=== PATIENT | male | born 1945 | race Caucasian/White ===

== ENCOUNTER 2017-01-02 20:34 | Emergency (ER) | payer OTHER, MEDICARE ==
--- NOTE | 2017-01-02 20:53 | ER Document Report ---
ED General - General Time seen by provider: 20:40 Mode of Arrival: Medic Information source: Patient, Relative - spouse TRAVEL OUTSIDE OF THE [place] IN LAST 30 DAYS: No - HPI Onset: Other - see HPI note Pain Level: Denies Associated symptoms: Weakness <MAYANK RONQUILLO - Last Filed: 01/02/17 21:34> <MARYLIN SUBRAMANIAN - Last Filed: 01/02/17 23:33> - General Stated Complaint: SLURRED SPEECH,WEAKNESS Notes: Patient is a 71 year old male presenting to the ED for a TIA. Patient states he has a history of these and when he gets them they usually last from 20 minutes to 3 hours. Patient states that this episode started at 19:30 this evening. Patient has a history of carotid stenosis on the left side; patient states this is why they believe he has reoccurring TIAs. Patient has had increased episodes of these and is having them x1 each week now instead of having 1 every 6 months. Patient just moved here from [place]; all of the patient's tests and doctors are at [facility] and in [place]. Patient states when he gets an episode he has blurry vision, slurred/slow speech, and weakness in his legs to the point of not being able to ambulate. At time of exam patient states he still has some blurry vision and he states his speech is slow and still slurred. Patient has a history of hypertension, hypercholesterolemia, diabetes mellitus ( type 2), and neuropathy. Patient denies any history of a stroke. Patient has been taking aggrenox for the TIAs for the past 4 months; prior to this he was taking plavix. Patient also takes lisinopril, metformin, insulin, zocor, and gavapentin. (MAYANK RONQUILLO) The patient is not a TPA candidate due to his history of recurrent TIAs, with his currently resolving symptoms, and his hyperglycemia. (MARYLIN SUBRAMANIAN) - Related Data Allergies/Adverse Reactions: No Known Allergies Allergy (Unverified 01/02/17 21:44) Past Medical History - General Information source: Patient, Relative - spouse - Social History Smoking Status: Current Every Day Smoker Cigarette use (# per day): Yes - 2 ppd Drug Abuse: None Family History: None Patient has suicidal ideation: No Patient has homicidal ideation: No - Past Medical History Cardiac Medical History: Reports: Hx Hypercholesterolemia, Hx Hypertension Neurological Medical History: Reports: Other - TIA, neuropathy Endocrine Medical History: Reports: Hx Diabetes Mellitus Type 2 Past Surgical History: Reports: Hx Orthopedic Surgery - lumbar spine Sx <SAVIMAYANK SHARIF - Last Filed: 01/02/17 21:34> Review of Systems - Review of Systems Constitutional: No symptoms reported EENT: See HPI, Blurred vision Cardiovascular: No symptoms reported Respiratory: No symptoms reported Gastrointestinal: No symptoms reported Genitourinary: No symptoms reported Male Genitourinary: No symptoms reported Musculoskeletal: No symptoms reported Skin: No symptoms reported Hematologic/Lymphatic: No symptoms reported Neurological/Psychological: See HPI, Weakness -: Yes All other systems reviewed and negative <MAYANK RONQUILLO - Last Filed: 01/02/17 21:34> Physical Exam - Vital signs Interpretation: Hypertensive - 180/88 during exam - General General appearance: Appears well, Alert In distress: Mild - HEENT Head: Normocephalic, Atraumatic Eyes: Normal Pupils: PERRL Mucous membranes: Moist - Respiratory Respiratory status: No respiratory distress Chest status: Nontender Breath sounds: Normal Chest palpation: Normal - Cardiovascular Rhythm: Other - regular with an occasional premature beat Heart sounds: Normal auscultation Murmur: No - Abdominal Inspection: Normal Distension: No distension Bowel sounds: Normal Tenderness: Nontender Organomegaly: No organomegaly - Back Back: Normal, Nontender - Extremities General upper extremity: Normal inspection, Normal ROM, Normal strength General lower extremity: Normal inspection, Edema - bilaterally, Normal ROM, Normal strength - Neurological Neuro grossly intact: Yes Cognition: Normal Orientation: AAOx4 [place] Coma Scale Eye Opening: Spontaneous [place] Coma Scale Verbal: Oriented [place] Coma Scale Motor: Obeys Commands [place] Coma Scale Total: 15 Speech: Normal - patient's spouse states the patient's speech is slowed but it appears normal - Psychological Associated symptoms: Normal affect, Normal mood - Skin Skin Temperature: Warm Skin Moisture: Dry <MAYANK RONQUILLO - Last Filed: 01/02/17 21:34> Course <MAYANK RONQUILLO - Last Filed: 01/02/17 21:34> - Laboratory Result Diagrams: 01/02/17 21:15 01/02/17 21:15 - Diagnostic Test Radiology reviewed: Reports reviewed - Head CT shows mild atrophy with chronic microvascular ischemic white matter changes and some sinus disease. - EKG Interpretation by Me EKG shows normal: Sinus rhythm, Adams, Intervals, QRS Complexes, ST-T Waves Rate: Normal - 87 Rhythm: NSR, PVC's Voltage: Decreased voltage <MARYLIN SUBRAMANIAN - Last Filed: 01/02/17 23:33> - Re-evaluation Re-evalutation: 01/02/17 23:20 At this time the patient is awakened from sleeping and he reports that his speech is completely normal, and his vision is now back to completely normal. His concurs that his speech is completely normal again. The patient was advised about his A1c of 9.5 and blood sugar 304 and the need to establish with a primary care provider to get better control of his blood sugars. Due to the chronic recurring nature of his TIAs, he is on Aggrenox, he has been extensively worked up in the past, there is no benefit to hospitalization admission at this time. His and he are both in agreement and actually relieved about that decision. (MARYLIN SUBRAMANIAN) - Vital Signs Vital signs: Temp Pulse Resp BP Pulse Ox 92 20 190/84 H 95 01/02/17 21:00 01/02/17 21:00 01/02/17 21:00 01/02/17 21:00 - Laboratory Laboratory results interpreted by md: 01/02/17 01/02/17 01/02/17 21:15 21:15 21:15 WBC 10.7 H RBC 4.08 L Sodium 145.4 H Glucose 304 H Hemoglobin A1c % 9.5 H Discharge <MAYANK RONQUILLO - Last Filed: 01/02/17 21:34> <MARYLIN SUBRAMANIAN - Last Filed: 01/02/17 23:33> - Discharge Clinical Impression: Poorly controlled diabetes mellitus Transient ischemic attack Qualifiers: Transient cerebral ischemia type: unspecified Qualified Code(s): G45.9 - Transient cerebral ischemic attack, unspecified Condition: Stable Disposition: HOME, SELF-CARE Additional Instructions: Transient Ischemic Attack: You have been diagnosed as having a transient ischemic attack (TIA). This is caused when an artery to the brain has been temporarily blocked. It can result in visual changes, difficulty with speech, and weakness or numbness -- usually limited to one side of the body. TIA symptoms usually resolve within an hour, but a TIA is serious, as it may be a warning sign of an impending stroke. To prevent further episodes, you may be placed on medication to reduce the possibility that your platelets will aggregate and form blood clots in the arteries that supply the brain. Usually, this includes aspirin and sometimes other platelet inhibitors. Further evaluation is often necessary to make an exact diagnosis as to where these blood clots are originating, and if anything else needs to be done to correct the problem. Call the physician or go to the emergency room if episodes occur with increasing frequency. If symptoms occur that don't go away within a few minutes , call 911. //////////////////////////////////////////////////////////////////////////////// ///////////////////////////////////////////////////////////////////////////// Continue your regular medications. Check your blood sugars regularly. Follow-up with a local medical doctor to help manage your sugars more adequately. Smoking does increase the risk of stroke, so consider decreasing or stopping smoking. RETURN TO THE EMERGENCY ROOM IF ANY NEW OR WORSENING SYMPTOMS. Scribe Attestation: 01/02/17 23:31 I personally performed the services described in the documentation, reviewed and edited the documentation which was dictated to the scribe in my presence, and it accurately records my words and actions. (MARYLIN SUBRAMANIAN) Scribe Documentation - Scribe Written by Rich:: Mayank Ronquillo 01/02/17 21:10 acting as scribe for :: Sasha <MAYANK RONQUILLO - Last Filed: 01/02/17 21:34>
[2017-01-02 21:43] LABS: ABSOLUTE BASOPHILS # (AUTO) 0.1 10^3/uL (0.0-0.2); ABSOLUTE EOSINOPHILS # (AUTO) 0.2 10^3/uL (0.0-0.6); ABSOLUTE LYMPHOCYTES (AUTO) 1.9 10^3/uL (0.5-4.7); ABSOLUTE MONOCYTES (AUTO) 0.8 10^3/uL (0.1-1.4); ABSOLUTE NEUT (AUTO) 7.8 10^3/uL (1.7-8.2); BASOPHILS % (AUTO) 0.7 % (0-2); HEMATOCRIT 39.3 % (37.9-51.0); HEMOGLOBIN 13.6 g/dL (13.5-17.0); HGB HCT DIFFERENCE 1.5; LYMPHOCYTES % (AUTO) 17.5 % (13-45); MEAN CORPUSCULAR HEMOGLOBIN 33.4 pg (27.0-33.4); MEAN CORPUSCULAR HGB CONC 34.7 g/dL (32.0-36.0); MEAN CORPUSCULAR VOLUME 96 fl (80-97); MONOCYTES % (AUTO) 7.4 % (3-13); RED BLOOD COUNT 4.08 10^6/uL (4.35-5.55); RED CELL DISTRIBUTION WIDTH 13.5 % (11.5-14.0); SEGMENTED NEUTROPHILS % (AUTO) 72.4 % (42-78); WHITE BLOOD COUNT 10.7 10^3/uL (4.0-10.5)
[2017-01-02 22:02] LABS: ALANINE AMINOTRANSFERASE 35 U/L (21-72); ALBUMIN 4.5 g/dL (3.5-5.0); ALKALINE PHOSPHATASE 69 U/L (38-126); ANION GAP 14 (5-19); ASPARTATE AMINO TRANSFERASE 23 U/L (17-59); BILIRUBIN,DIRECT 0.3 mg/dL (0.0-0.4); BILIRUBIN,TOTAL 0.4 mg/dL (0.2-1.3); BLOOD UREA NITROGEN 18 mg/dL (7-20); CARBON DIOXIDE 27 mmol/L (22-30); CHLORIDE 104 mmol/L (98-107); CREATININE RESULT 0.66 mg/dL (0.52-1.25); GLUCOSE 304 mg/dL (75-110); POTASSIUM 4.3 mmol/L (3.6-5.0); SODIUM 145.4 mmol/L (137-145); TOTAL PROTEIN 7.3 g/dL (6.3-8.2)
[2017-01-02 22:41] LABS: ADD ON TESTING BLD IN LAB ACKNOWLEDGE
[2017-01-02 23:18] LABS: CREATINE KINASE 140 U/L (55-170); MAGNESIUM 2.2 mg/dL (1.6-2.3)
[2017-01-02 23:36] LABS: CREATINE KINASE MB 2.36 ng/mL (<4.55); TROPONIN I < 0.012 ng/mL
[2017-01-02 23:45] VITALS: BP 149/82
--- NOTE | 2017-01-03 09:34 | EKG REPORT ---
SEVERITY:- ABNORMAL ECG - SINUS RHYTHM MULTIPLE VENTRICULAR PREMATURE COMPLEXES LOW VOLTAGE IN FRONTAL LEADS : Confirmed by: Aura Perez 03-Jan-2017 09:33:08
== END 2017-01-02 23:45 | disposition home or self-care (01) ==
LOC: ER 20:34
DX: E11.9 Type 2 diabetes mellitus without complications (principal); R53.1 Weakness; G45.9 Transient cerebral ischemic attack, unspecified; F17.210 Nicotine dependence, cigarettes, uncomplicated; E78.00 Pure hypercholesterolemia, unspecified; I10 Essential (primary) hypertension; Z86.73 Personal history of transient ischemic attack (TIA), and cerebral infarction without residual deficits
CPT/HCPCS: 36415; 70450; 80053; 82550; 82553; 83036; 83735; 84484; 85025; 93005; 93010; 99285

== ENCOUNTER 2017-12-04 12:10 | Emergency (ER) | payer OTHER, MEDICARE ==
[2017-12-04 12:17] VITALS: BP 149/62
--- NOTE | 2017-12-04 13:12 | ER Document Report ---
HPI - HPI Patient complains to provider of: Lower extremity swelling Onset: Other - 1 month Onset/Duration: Persistent Quality of pain: Achy Pain Level: 1 Context: Patient presents complaining of swelling off and on to right lower leg for the past month. Patient states that he got an abrasion to his right leg 3 weeks ago. Patient states that he saw his doctor who advised him to come here to be evaluated for possible blood clot. Patient denies any chest pain or shortness of breath. Associated Symptoms: denies: Chest pain, Nonproductive cough, Fever, Shortness of breath Exacerbated by: Denies Relieved by: Denies Similar symptoms previously: No Recently seen / treated by doctor: No - ROS ROS below otherwise negative: Yes Systems Reviewed and Negative: Yes All other systems reviewed and negative - CONSTITUTIONAL Constitutional: DENIES: Fever, Chills - NEURO Neurology: DENIES: Weakness - CARDIOVASCULAR Cardiovascular: DENIES: Chest pain - RESPIRATORY Respiratory: DENIES: Trouble Breathing, Coughing - MUSCULOSKELETAL Musculoskeletal: REPORTS: Extremity pain - RLE, Swelling - DERM Skin Color: Erythema Skin Problems: Abrasion Past Medical History - General Information source: Patient - Social History Smoking Status: Unknown if Ever Smoked Frequency of alcohol use: None Drug Abuse: None Occupation: retired Family History: None Patient has suicidal ideation: No Patient has homicidal ideation: No - Past Medical History Cardiac Medical History: Reports: Hx Hypercholesterolemia, Hx Hypertension Endocrine Medical History: Reports: Hx Diabetes Mellitus Type 2 Renal/ Medical History: Denies: Hx Peritoneal Dialysis Past Surgical History: Reports: Hx Orthopedic Surgery - lumbar spine Sx Vertical Provider Document - CONSTITUTIONAL Agree With Documented VS: Yes Exam Limitations: No Limitations General Appearance: WD/WN, No Apparent Distress - INFECTION CONTROL TRAVEL OUTSIDE OF THE [place] IN LAST 30 DAYS: No - HEENT HEENT: Atraumatic, Normocephalic - NECK Neck: Normal Inspection, Supple - RESPIRATORY Respiratory: Breath Sounds Normal, No Respiratory Distress O2 Sat by Pulse Oximetry: 97 - CARDIOVASCULAR Cardiovascular: Regular Rate, Regular Rhythm Pulses: Decreased: Dorsalis pedis - with doppler - GI/ABDOMEN Gastrointestinal: Abdomen Soft - BACK Back: Normal Inspection - MUSCULOSKELETAL/EXTREMETIES Musculoskeletal/Extremeties: MAEW, Tender - RLE tenderness from the knee distally, Edema - 2+. negative: Eccymosis - NEURO Level of Consciousness: Awake, Alert, Appropriate Motor/Sensory: No Motor Deficit - DERM Integumentary: Warm, Dry Notes: Erythema to right lower extremity, skin is warm to touch. Patient with abrasion over proximal third of right lower leg. Course - Re-evaluation Re-evalutation: 12/04/17 14:55 Diagnostic test results reviewed. No concern for DVT at this time. Patient with appreciable pulse Via Doppler. Patient does have erythema with a pretty large abrasion to the right lower leg. Will cover for cellulitis and have patient follow-up with primary doctor for recheck. - Vital Signs Vital signs: Temp Pulse Resp BP Pulse Ox 98.5 F 67 16 149/62 H 97 12/04/17 12:16 12/04/17 12:16 12/04/17 12:16 12/04/17 12:16 12/04/17 12:16 - Laboratory Result Diagrams: 12/04/17 14:09 12/04/17 14:09 Laboratory results interpreted by me: 12/04/17 14:55 Labs- Entire Visit 12/04/17 12/04/17 12/04/17 14:09 14:09 14:09 WBC 8.9 RBC 4.08 L Hgb 13.6 Hct 39.4 MCV 97 MCH 33.3 MCHC 34.5 RDW 13.6 Plt Count 210 Seg Neutrophils % 61.2 Lymphocytes % 27.6 Monocytes % 8.7 Eosinophils % 1.6 Basophils % 0.9 Absolute Neutrophils 5.5 Absolute Lymphocytes 2.5 Absolute Monocytes 0.8 Absolute Eosinophils 0.1 Absolute Basophils 0.1 PT 12.5 INR 0.87 APTT 26.7 Sodium 143.2 Potassium 4.1 Chloride 108 H Carbon Dioxide 21 L Anion Gap 14 BUN 18 Creatinine 0.73 Est GFR ( Amer) > 60 Est GFR (Non-Af Amer) > 60 Glucose 108 Calcium 9.6 Total Bilirubin 0.3 Direct Bilirubin 0.3 Neonat Total Bilirubin Not Reportable Neonat Direct Bilirubin Not Reportable Neonat Indirect Bili Not Reportable AST 17 ALT 29 Alkaline Phosphatase 56 Total Protein 7.9 Albumin 4.8 - Diagnostic Test Radiology reviewed: Reports reviewed Discharge - Discharge Clinical Impression: Leg swelling, Hx of essential hypertension Cellulitis Qualifiers: Site of cellulitis: extremity Site of cellulitis of extremity: lower extremity Laterality: right Qualified Code(s): L03.115 - Cellulitis of right lower limb Condition: Stable Disposition: HOME, SELF-CARE Instructions: Abrasions ([facility]), Cellulitis ([facility]), Cephalexin ([facility]) Additional Instructions: Return immediately for any new or worsening symptoms Followup with your primary care provider, call tomorrow to make a followup appointment Prescriptions: Cephalexin Monohydrate [Keflex 500 mg Capsule] 500 mg PO Q6H 7 Days capsule Forms: Elevated Blood Pressure Referrals: [facility] [Provider Group] - Follow up tomorrow
[2017-12-04 14:21] LABS: ABSOLUTE BASOPHILS # (AUTO) 0.1 10^3/uL (0.0-0.2); ABSOLUTE EOSINOPHILS # (AUTO) 0.1 10^3/uL (0.0-0.6); ABSOLUTE LYMPHOCYTES (AUTO) 2.5 10^3/uL (0.5-4.7); ABSOLUTE MONOCYTES (AUTO) 0.8 10^3/uL (0.1-1.4); ABSOLUTE NEUT (AUTO) 5.5 10^3/uL (1.7-8.2); BASOPHILS % (AUTO) 0.9 % (0-2); EOSINOPHILS % (AUTO) 1.6 % (0-6); HEMATOCRIT 39.4 % (37.9-51.0); HEMOGLOBIN 13.6 g/dL (13.5-17.0); LYMPHOCYTES % (AUTO) 27.6 % (13-45); MEAN CORPUSCULAR HEMOGLOBIN 33.3 pg (27.0-33.4); MEAN CORPUSCULAR HGB CONC 34.5 g/dL (32.0-36.0); MEAN CORPUSCULAR VOLUME 97 fl (80-97); MONOCYTES % (AUTO) 8.7 % (3-13); PLATELET COUNT 210 10^3/uL (150-450); RED BLOOD COUNT 4.08 10^6/uL (4.35-5.55); RED CELL DISTRIBUTION WIDTH 13.6 % (11.5-14.0); SEGMENTED NEUTROPHILS % (AUTO) 61.2 % (42-78); TOTAL CELLS COUNTED % (AUTO) 100 %; WHITE BLOOD COUNT 8.9 10^3/uL (4.0-10.5)
--- NOTE | 2017-12-04 14:26 | RADIOLOGY REPORT (SQ) ---
EXAM DESCRIPTION: VENOUS UNILATERAL LOWER COMPLETED DATE/TIME: 12/04/2017 2:11 pm REASON FOR STUDY: RLL pain, swelling COMPARISON: None. TECHNIQUE: Dynamic and static reynolds scale and color images acquired of the right leg venous system. S elected spectral images acquired with additional compression and augmentation maneuvers. The contrala teral common femoral vein and saphenofemoral junction were also imaged. Images stored on PACS. LIMITATIONS: None. FINDINGS: RIGHT COMMON FEMORAL: Normal phasicity, compression and augmentation. No visualized echogenic material on g ray scale. No defects on color images. FEMORAL: Normal compression and augmentation. No visualized echogenic material on reynolds scale. No defe cts on color images. POPLITEAL: Normal compression, augmentation. No visualized echogenic material on reynolds scale. No defec ts on color images. CALF VESSELS: Normal compression, augmentation. No visualized echogenic material on reynolds scale. No de fects on color images. GSV and SSV: Normal compression, augmentation. No visualized echogenic material on reynolds scale. No def ects on color images. ANY DEEP VENOUS INSUFFICIENCY: Not evaluated. ANY EVIDENCE OF POPLITEAL CYST: No. OTHER: No other significant finding. LEFT COMMON FEMORAL VEIN AND SAPHENOFEMORAL JUNCTION: Normal phasicity, compression and augmentation. No visualized echogenic material on reynolds scale. No de fects on color images. IMPRESSION: NO EVIDENCE OF DVT OR SVT IN THE LEFT LEG. TECHNICAL DOCUMENTATION: JOB ID: [id number] [employer]- All Rights Reserved Reading location - IP/workstation name: [email or web address]
[2017-12-04 14:29] LABS: INTERNATIONAL RATION (INR) 0.87; PROTHROMBIN TIME 12.5 SEC (11.4-15.4)
[2017-12-04 14:30] LABS: PARTIAL THROMBOPLASTIN TIME 26.7 SEC (23.5-35.8)
[2017-12-04 14:39] LABS: ALANINE AMINOTRANSFERASE 29 U/L (21-72); ALBUMIN 4.8 g/dL (3.5-5.0); ALKALINE PHOSPHATASE 56 U/L (38-126); ANION GAP 14 (5-19); ASPARTATE AMINO TRANSFERASE 17 U/L (17-59); BILIRUBIN,DIRECT 0.3 mg/dL (0.0-0.4); BILIRUBIN,TOTAL 0.3 mg/dL (0.2-1.3); BLOOD UREA NITROGEN 18 mg/dL (7-20); CALCIUM 9.6 mg/dL (8.4-10.2); CARBON DIOXIDE 21 mmol/L (22-30); CHLORIDE 108 mmol/L (98-107); GLUCOSE 108 mg/dL (75-110); POTASSIUM 4.1 mmol/L (3.6-5.0); SODIUM 143.2 mmol/L (137-145); TOTAL PROTEIN 7.9 g/dL (6.3-8.2)
[2017-12-04] MEDS ORDERED: CEPHALEXIN 500 MG CAPSULE PO ONE (14:55)
== END 2017-12-04 15:17 | disposition home or self-care (01) ==
LOC: ER 12:10
DX: S80.811A Abrasion, right lower leg, initial encounter (principal); L03.115 Cellulitis of right lower limb; X58.XXXA Exposure to other specified factors, initial encounter; E11.9 Type 2 diabetes mellitus without complications; I10 Essential (primary) hypertension
CPT/HCPCS: 36415; 80053; 85025; 85610; 85730; 93971; 99284

== ENCOUNTER 2018-04-29 08:57 | Emergency (ER) | payer OTHER, MEDICARE ==
--- NOTE | 2018-04-29 09:20 | ER Document Report ---
ED General - General Chief Complaint: Nausea/Vomiting Stated Complaint: NAUSEA,VOMITING Time Seen by Provider: 04/29/18 09:00 Notes: 72-year-old male to emergency department chief complaint of fever and not feeling well. Nausea and vomiting. Mild shortness of breath. Patient states that he has a history of COPD. Occasional pneumonia. Started having some vomiting this morning. Does not have any chest pain at this time. Fever of 101 at home. TRAVEL OUTSIDE OF THE [place] IN LAST 30 DAYS: No - HPI Onset: Just prior to arrival Quality of pain: No pain Severity: Moderate - Related Data Allergies/Adverse Reactions: No Known Allergies Allergy (Verified 12/04/17 12:12) Past Medical History - General Information source: Patient - Social History Smoking Status: Current Every Day Smoker Cigarette use (# per day): Yes Frequency of alcohol use: None Drug Abuse: None Lives with: Spouse/Significant other Family History: None Patient has suicidal ideation: No Patient has homicidal ideation: No - Past Medical History Cardiac Medical History: Reports: Hx Hypercholesterolemia, Hx Hypertension Endocrine Medical History: Reports: Hx Diabetes Mellitus Type 2 Renal/ Medical History: Denies: Hx Peritoneal Dialysis Past Surgical History: Reports: Hx Orthopedic Surgery - lumbar spine Sx Review of Systems - Review of Systems Constitutional: Fever. denies: Malaise, Weakness EENT: denies: Eye pain, Nose pain, Mouth pain Cardiovascular: denies: Chest pain, Orthopnea, Dyspnea, Edema Respiratory: denies: Cough, Hurts to breathe, Short of breath, Wheezing Gastrointestinal: Nausea, Vomiting. denies: Abdominal pain, Diarrhea Genitourinary: denies: Burning, Dysuria, Discharge Musculoskeletal: denies: Back pain, Joint pain, Muscle pain Skin: denies: Change in color, Dryness, Lesions, Lumps, Rash Hematologic/Lymphatic: denies: Anemia, Blood clots, Easy bleeding, Easy bruising Neurological/Psychological: denies: Confusion, Dementia, Weakness, Speech impairment, Numbness Physical Exam - Vital signs Vitals: Temp Pulse Resp BP Pulse Ox 99.6 F 79 16 149/53 H 96 04/29/18 09:08 04/29/18 09:08 04/29/18 09:08 04/29/18 09:08 04/29/18 09:08 Interpretation: Normal - General General appearance: Appears well, Alert - HEENT Head: Normocephalic, Atraumatic Eyes: Normal Pupils: PERRL - Respiratory Respiratory status: No respiratory distress Chest status: Nontender Breath sounds: Rales, Other Chest palpation: Normal - Cardiovascular Rhythm: Regular Heart sounds: Normal auscultation Murmur: No - Abdominal Inspection: Normal Distension: No distension Bowel sounds: Normal Tenderness: Nontender Organomegaly: No organomegaly - Back Back: Normal, Nontender - Extremities General upper extremity: Normal inspection, Nontender, Normal color, Normal ROM , Normal temperature General lower extremity: Normal inspection, Nontender, Normal color, Normal ROM , Normal temperature, Normal weight bearing. No: Faustino's sign - Neurological Neuro grossly intact: Yes Cognition: Normal Orientation: AAOx4 [place] Coma Scale Eye Opening: Spontaneous [place] Coma Scale Verbal: Oriented [place] Coma Scale Motor: Obeys Commands [place] Coma Scale Total: 15 Speech: Normal Motor strength normal: LUE, RUE, LLE, RLE Sensory: Normal - Psychological Associated symptoms: Normal affect, Normal mood - Skin Skin Temperature: Warm Skin Moisture: Dry Skin Color: Normal Course - Re-evaluation Re-evalutation: 04/29/18 13:03 CT scan performed of the chest abdomen and pelvis to look for source of fever. Possible groundglass opacity in the right lower lobe consistent with pneumonia. This would go along with patient's symptoms. At this time we will treat with some antibiotics. Labs are fairly unremarkable. Does not appear toxic. Not septic. Does have an elevated WBC count. Port score of 73. Could have inpatient or outpatient treatment at this time. Patient prefers outpatient treatment. Will give initial antibiotics at this time. Patient has close follow-up. 04/29/18 13:03 04/29/18 13:07 - Vital Signs Vital signs: Temp Pulse Resp BP Pulse Ox 99.6 F 79 16 149/53 H 96 04/29/18 09:08 04/29/18 09:08 04/29/18 09:08 04/29/18 09:08 04/29/18 09:08 - Laboratory Result Diagrams: 04/29/18 09:05 04/29/18 09:05 Laboratory results interpreted by me: 04/29/18 04/29/18 04/29/18 09:05 09:05 09:13 WBC 16.4 H Seg Neuts % (Manual) 94 H Lymphocytes % (Manual) 2 L Abs Neuts (Manual) 15.4 H Abs Lymphs (Manual) 0.3 L Glucose 333 H POC Glucose 341 H AST 16 L Urine Glucose (UA) Urine Ketones 04/29/18 11:30 WBC Seg Neuts % (Manual) Lymphocytes % (Manual) Abs Neuts (Manual) Abs Lymphs (Manual) Glucose POC Glucose AST Urine Glucose (UA) >=500 H Urine Ketones TRACE H Discharge - Discharge Clinical Impression: Right lower lobe pneumonia Qualifiers: Pneumonia type: due to unspecified organism Qualified Code(s): J18.1 - Lobar pneumonia, unspecified organism Condition: Good Disposition: HOME, SELF-CARE Instructions: Pneumonia ([facility]) Prescriptions: Azithromycin 250 mg PO DAILY 7 Days #7 tablet Cefdinir [Omnicef 300 mg Capsule] 1 cap PO BID 10 Days #30 capsule Referrals: MYNOR REDMOND PA [Primary Care Provider] - Follow up as needed
[2018-04-29 09:40] LABS: VENOUS BLOOD BASE EXCESS -0.8 mmol/L; VENOUS BLOOD PCO2 45.5 mmHg (35-63); VENOUS BLOOD PH 7.36 (7.30-7.42)
[2018-04-29 09:44] LABS: INTERNATIONAL RATION (INR) 0.92; PROTHROMBIN TIME 12.8 SEC (11.4-15.4)
[2018-04-29 09:45] LABS: PARTIAL THROMBOPLASTIN TIME 23.5 SEC (23.5-35.8)
[2018-04-29 09:56] LABS: ALANINE AMINOTRANSFERASE 21 U/L (21-72); ALBUMIN 4.5 g/dL (3.5-5.0); ALKALINE PHOSPHATASE 83 U/L (38-126); ANION GAP 17 (5-19); ASPARTATE AMINO TRANSFERASE 16 U/L (17-59); BILIRUBIN,DIRECT 0.3 mg/dL (0.0-0.4); BILIRUBIN,TOTAL 0.7 mg/dL (0.2-1.3); BLOOD UREA NITROGEN 17 mg/dL (7-20); CALCIUM 9.6 mg/dL (8.4-10.2); CARBON DIOXIDE 22 mmol/L (22-30); CHLORIDE 105 mmol/L (98-107); GLUCOSE 333 mg/dL (75-110); POTASSIUM 4.2 mmol/L (3.6-5.0); SODIUM 143.5 mmol/L (137-145); TOTAL PROTEIN 7.6 g/dL (6.3-8.2)
[2018-04-29 10:04] LABS: HEMATOCRIT 41.8 % (37.9-51.0); HEMOGLOBIN 14.3 g/dL (13.5-17.0); MEAN CORPUSCULAR HEMOGLOBIN 32.5 pg (27.0-33.4); MEAN CORPUSCULAR HGB CONC 34.1 g/dL (32.0-36.0); MEAN CORPUSCULAR VOLUME 95 fl (80-97); PLATELET COUNT 187 10^3/uL (150-450); RED BLOOD COUNT 4.39 10^6/uL (4.35-5.55); RED CELL DISTRIBUTION WIDTH 13.8 % (11.5-14.0); WHITE BLOOD COUNT 16.4 10^3/uL (4.0-10.5)
--- NOTE | 2018-04-29 10:05 | RADIOLOGY REPORT (SQ) ---
EXAM DESCRIPTION: CHEST SINGLE VIEW COMPLETED DATE/TIME: 04/29/2018 9:54 am REASON FOR STUDY: sob COMPARISON: None. EXAM PARAMETERS: NUMBER OF VIEWS: One view. TECHNIQUE: Single frontal radiographic view of the chest acquired. RADIATION DOSE: NA LIMITATIONS: None. FINDINGS: LUNGS AND PLEURA: There is elevation of the right hemidiaphragm, otherwise no opacities, m asses or pneumothorax. No pleural effusion. MEDIASTINUM AND HILAR STRUCTURES: No masses. Contour normal. HEART AND VASCULAR STRUCTURES: Heart normal in size. Normal vasculature. BONES: No acute findings. HARDWARE: None in the chest. OTHER: No other significant finding. IMPRESSION: Elevation of the right hemidiaphragm. No comparison studies available to determine chrome plater nicity. Exam is otherwise unremarkable. TECHNICAL DOCUMENTATION: JOB ID: [id number] [employer]- All Rights Reserved Reading location - IP/workstation name: [email or web address]
[2018-04-29 10:18] LABS: ABSOLUTE LYMPHOCYTES# (MANUAL) 0.3 10^3/uL (0.5-4.7); ABSOLUTE MONOCYTES # (MANUAL) 0.5 10^3/uL (0.1-1.4); ABSOLUTE NEUTROPHILS# (MANUAL) 15.4 10^3/uL (1.7-8.2); BASOPHILS % (MANUAL) 1 % (0-2); EOSINOPHILS % (MANUAL) 0 % (0-6); LYMPHOCYTES % (MANUAL) 2 % (13-45); MONOCYTES % (MANUAL) 3 % (3-13); PLATELET COMMENT ADEQUATE; RBC MORPHOLOGY COMMENT NORMO-CYTIC/CHROMIC; SEGMENTED NEUTROPHILS % (MAN) 94 % (42-78); TOTAL CELLS COUNTED 100
[2018-04-29] MEDS ORDERED: ACETAMINOPHEN 325 MG TABLET PO ONE (10:29)
[2018-04-29] MEDS ORDERED: NORMAL SALINE 1000 ML 1,000 ML IV ONE (10:29)
[2018-04-29 11:49] LABS: APPEARANCE,URINE CLEAR; BILIRUBIN,URINE NEGATIVE (NEGATIVE); COLOR,URINE YELLOW; GLUCOSE, URINE >=500 mg/dL (NEGATIVE); KETONES,URINE TRACE mg/dL (NEGATIVE); LEUKOCYTE ESTERASE,URINE NEGATIVE (NEGATIVE); NITRITE,URINE NEGATIVE (NEGATIVE); PROTEIN,URINE NEGATIVE (NEGATIVE); URINE SPECIFIC GRAVITY 1.032; UROBILINOGEN,URINE NEGATIVE mg/dL (<2.0)
--- NOTE | 2018-04-29 12:08 | RADIOLOGY REPORT (SQ) ---
EXAM DESCRIPTION: CT CHEST WITH; CT ABD/PELVIS WITH IV ONLY COMPLETED DATE/TIME: 04/29/2018 11:28 am REASON FOR STUDY: fever, cough, sob; abd pain, fever CONTRAST TYPE AND DOSE: contrast/concentration: Isovue 370.00 mg/ml; Total Contrast Delivered: 91.0 ml; Total Saline Delivered: 62.0 ml RENAL FUNCTION: Creatinine: 0.72. COMPARISON: None. TECHNIQUE: CT scan of the chest performed using helical scanning technique with dynamic intravenous contrast injection. Images reviewed with lung, soft tissue and bone windows. Reconstructed coronal a nd sagittal MPR images reviewed. All images stored on PACS. All CT scanners at this facility use dose modulation, iterative reconstruction, and/or weight based d osing when appropriate to reduce radiation dose to as low as reasonably achievable (ALARA). [facility]: Dose Right [facility]: CareDose [facility]: Dose Right [facility]: Teradose 4D [facility]: [employer] RADIATION DOSE: CT Rad equipment meets quality standard of care and radiation dose reduction techniq ues were employed. CTDIvol: 11.8 - 16.9 mGy. DLP: 1785 mGy-cm.. LIMITATIONS: None. FINDINGS: AXILLAE: No adenopathy. CHEST WALL: No masses. No subcutaneous air. LUNGS: Ground-glass infiltrate within the right lower lobe. Pneumonia must be considered. PLEURA: No effusions. No calcifications. THYROID: No masses or significant asymmetry. HILAR AND MEDIASTINAL STRUCTURES: Small nonenlarged precarinal and right hilar nodes. AORTA AND GREAT VESSELS: Atherosclerotic calcification of thoracic aorta. PULMONARY ARTERIES: No identified pulmonary emboli. Study not optimized for the pulmonary arteries. HEART: No abnormality. BONES: Dorsal spondylosis. IMPRESSION: GROUND-GLASS INFILTRATES RIGHT LOWER LOBE CONSISTENT WITH PNEUMONIA. OTHERWISE, NORMAL CT OF CHEST WITH CONTRAST. COMPARISON: None. RADIATION DOSE: CT Rad equipment meets quality standard of care and radiation dose reduction techniq ues were employed. CTDIvol: 11.8 - 16.9 mGy. DLP: 1785 mGy-cm.mGy. TECHNIQUE: CT scan of the abdomen and pelvis performed with intravenous and oral contrast using georgina yissel scanning technique with dynamic intravenous contrast injection. Images reviewed with lung, soft tissue and bone windows. Reconstructed coronal and sagittal MPR images reviewed. Delayed images for evaluation of the urinary system also acquired and evaluated. All images stored on PACS. All CT scanners at this facility use dose modulation, iterative reconstruction, and/or weight based d osing when appropriate to reduce radiation dose to as low as reasonably achievable (ALARA). [facility]: Dose Right [facility]: [employer]Care [facility]: Dose Right [facility]: Teradose 4D [facility]: [employer] FINDINGS: LIVER: No abnormality. SPLEEN: No abnormality. PANCREAS: No abnormality. GALLBLADDER: No abnormality. ADRENAL GLANDS: No abnormality. RIGHT KIDNEY AND URETER: No solid masses. No significant calcification. No hydronephrosis or hydroure ter. LEFT KIDNEY AND URETER: Small cortical cyst lower pole left kidney. AORTA AND VESSELS: Diffuse atherosclerotic change of the abdominal aorta. Atherosclerotic change or igin of celiac and superior mesenteric arteries. Atherosclerotic change of the common iliac artery i s and femoral arteries. RETROPERITONEUM: No retroperitoneal adenopathy, hemorrhage or masses. LARGE AND SMALL BOWEL: Hiatal hernia. Constipation. APPENDIX: Normal. ABDOMINAL WALL: No hernia or masses. PERITONEAL CAVITY: No free air. No free fluid. No peritoneal implants or masses. PELVIS: Urinary bladder: Distended urinary bladder. Prostate and seminal vesicles: Prostatic calcu li. Prostate is mildly prominent. BONES: Lumbar spondylosis. Prominent dorsal spondylosis. OTHER: Umbilical hernia containing fat. Findings suggestive of edema of the subcutaneous fat of the left lower abdominal wall. Possibility of previous IM injection of posttraumatic change must be cons idered. IMPRESSION: MILD PROSTATOMEGALY. DISTENDED URINARY BLADDER. FINDINGS SUGGESTIVE OF POSTTRAUMATIC C HANGE TO THE LEFT LOWER ABDOMINAL WALL. UMBILICAL HERNIA TECHNICAL DOCUMENTATION: JOB ID: [id number] [place]-69 Quality ID # [id number]: Final reports with documentation of one or more dose reduction techniques (e.g., Au tomated exposure control, adjustment of the mA and/or kV according to patient size, use of iterative reconstruction technique) 2010 [employer]- All Rights Reserved Reading location - IP/workstation name: [email or web address]
--- NOTE | 2018-04-29 12:08 | RADIOLOGY REPORT (SQ) ---
EXAM DESCRIPTION: CT CHEST WITH; CT ABD/PELVIS WITH IV ONLY COMPLETED DATE/TIME: 04/29/2018 11:28 am REASON FOR STUDY: fever, cough, sob; abd pain, fever CONTRAST TYPE AND DOSE: contrast/concentration: Isovue 370.00 mg/ml; Total Contrast Delivered: 91.0 ml; Total Saline Delivered: 62.0 ml RENAL FUNCTION: Creatinine: 0.72. COMPARISON: None. TECHNIQUE: CT scan of the chest performed using helical scanning technique with dynamic intravenous contrast injection. Images reviewed with lung, soft tissue and bone windows. Reconstructed coronal a nd sagittal MPR images reviewed. All images stored on PACS. All CT scanners at this facility use dose modulation, iterative reconstruction, and/or weight based d osing when appropriate to reduce radiation dose to as low as reasonably achievable (ALARA). [facility]: Dose Right [facility]: CareDose [facility]: Dose Right [facility]: Teradose 4D [facility]: [employer] RADIATION DOSE: CT Rad equipment meets quality standard of care and radiation dose reduction techniq ues were employed. CTDIvol: 11.8 - 16.9 mGy. DLP: 1785 mGy-cm.. LIMITATIONS: None. FINDINGS: AXILLAE: No adenopathy. CHEST WALL: No masses. No subcutaneous air. LUNGS: Ground-glass infiltrate within the right lower lobe. Pneumonia must be considered. PLEURA: No effusions. No calcifications. THYROID: No masses or significant asymmetry. HILAR AND MEDIASTINAL STRUCTURES: Small nonenlarged precarinal and right hilar nodes. AORTA AND GREAT VESSELS: Atherosclerotic calcification of thoracic aorta. PULMONARY ARTERIES: No identified pulmonary emboli. Study not optimized for the pulmonary arteries. HEART: No abnormality. BONES: Dorsal spondylosis. IMPRESSION: GROUND-GLASS INFILTRATES RIGHT LOWER LOBE CONSISTENT WITH PNEUMONIA. OTHERWISE, NORMAL CT OF CHEST WITH CONTRAST. COMPARISON: None. RADIATION DOSE: CT Rad equipment meets quality standard of care and radiation dose reduction techniq ues were employed. CTDIvol: 11.8 - 16.9 mGy. DLP: 1785 mGy-cm.mGy. TECHNIQUE: CT scan of the abdomen and pelvis performed with intravenous and oral contrast using georgina yissel scanning technique with dynamic intravenous contrast injection. Images reviewed with lung, soft tissue and bone windows. Reconstructed coronal and sagittal MPR images reviewed. Delayed images for evaluation of the urinary system also acquired and evaluated. All images stored on PACS. All CT scanners at this facility use dose modulation, iterative reconstruction, and/or weight based d osing when appropriate to reduce radiation dose to as low as reasonably achievable (ALARA). [facility]: Dose Right [facility]: SureCare [facility]: Dose Right [facility]: Teradose 4D [facility]: [employer] FINDINGS: LIVER: No abnormality. SPLEEN: No abnormality. PANCREAS: No abnormality. GALLBLADDER: No abnormality. ADRENAL GLANDS: No abnormality. RIGHT KIDNEY AND URETER: No solid masses. No significant calcification. No hydronephrosis or hydroure ter. LEFT KIDNEY AND URETER: Small cortical cyst lower pole left kidney. AORTA AND VESSELS: Diffuse atherosclerotic change of the abdominal aorta. Atherosclerotic change or igin of celiac and superior mesenteric arteries. Atherosclerotic change of the common iliac artery i s and femoral arteries. RETROPERITONEUM: No retroperitoneal adenopathy, hemorrhage or masses. LARGE AND SMALL BOWEL: Hiatal hernia. Constipation. APPENDIX: Normal. ABDOMINAL WALL: No hernia or masses. PERITONEAL CAVITY: No free air. No free fluid. No peritoneal implants or masses. PELVIS: Urinary bladder: Distended urinary bladder. Prostate and seminal vesicles: Prostatic calcu li. Prostate is mildly prominent. BONES: Lumbar spondylosis. Prominent dorsal spondylosis. OTHER: Umbilical hernia containing fat. Findings suggestive of edema of the subcutaneous fat of the left lower abdominal wall. Possibility of previous IM injection of posttraumatic change must be cons idered. IMPRESSION: MILD PROSTATOMEGALY. DISTENDED URINARY BLADDER. FINDINGS SUGGESTIVE OF POSTTRAUMATIC C HANGE TO THE LEFT LOWER ABDOMINAL WALL. UMBILICAL HERNIA TECHNICAL DOCUMENTATION: JOB ID: [id number] [place]-69 Quality ID # [id number]: Final reports with documentation of one or more dose reduction techniques (e.g., Au tomated exposure control, adjustment of the mA and/or kV according to patient size, use of iterative reconstruction technique) 2010 [employer]- All Rights Reserved Reading location - IP/workstation name: [email or web address]
[2018-04-29] MEDS ORDERED: CEFTRIAXONE 1 GM/D5W RTU 1 GM/50 ML RTUPB IV ONE (13:04)
[2018-04-29] MEDS ORDERED: AZITHROMYCIN 250 MG TABLET PO ONE (13:04)
[2018-04-29] MEDS ORDERED: CEFTRIAXONE INJ 1000 MG VIAL IV ONE (13:29)
[2018-04-29 14:21] VITALS: BP 124/57
== END 2018-04-29 14:45 | disposition home or self-care (01) ==
LOC: ER 08:57
DX: J18.9 Pneumonia, unspecified organism (principal); J44.0 Chronic obstructive pulmonary disease with (acute) lower respiratory infection; R11.2 Nausea with vomiting, unspecified; R50.9 Fever, unspecified; R06.02 Shortness of breath; J44.9 Chronic obstructive pulmonary disease, unspecified; F17.210 Nicotine dependence, cigarettes, uncomplicated; I10 Essential (primary) hypertension; E11.9 Type 2 diabetes mellitus without complications
CPT/HCPCS: 99285; 96361; 96365; 36415; 87040; 82962; 85025; 85610; 85730; 80053; 81001; 82803; 83605; 71045; 71260; 74177; J0696; J7030

== ENCOUNTER → 2019-10-28 | Outpatient (CLI) | payer OTHER | LOC: SP 09:10 | PROVIDERS: ATTEND Physician Assistant Medical | DX: I73.9 Peripheral vascular disease, unspecified (principal) | CPT/HCPCS: 93925 ==

== ENCOUNTER 2020-04-03 12:18 | Emergency (ER) | payer OTHER, MEDICARE ==
--- NOTE | 2020-04-03 12:43 | ER Document Report ---
ED Medical Screen (RME) - General Chief Complaint: Fall Injury Stated Complaint: FALL/HEAD INJURY Time Seen by Provider: 04/03/20 12:40 Primary Care Provider: MYNOR REDMOND PA [Primary Care Provider] - Follow up as needed Notes: Patient is a 74-year-old male, currently on warfarin who presents emergency department after a fall. Patient [facility] [place] the [place] clinic and ended up falling and hitting his head. History provided by patient's family member. Exam: Abrasion noted to top of head. I have greeted and performed a rapid initial assessment of this patient. A comprehensive ED assessment and evaluation of the patient, analysis of test results and completion of medical decision making process will be conducted by an additional ED providers. TRAVEL OUTSIDE OF THE [place] IN LAST 30 DAYS: No - Related Data Allergies/Adverse Reactions: No Known Allergies Allergy (Verified 12/04/17 12:12) Past Medical History - Past Medical History Cardiac Medical History: Reports: Hx Hypercholesterolemia, Hx Hypertension Endocrine Medical History: Reports: Hx Diabetes Mellitus Type 2 Renal/ Medical History: Denies: Hx Peritoneal Dialysis Past Surgical History: Reports: Hx Orthopedic Surgery - lumbar spine Sx Physical Exam - Vital signs Vitals: Temp Pulse Resp BP Pulse Ox 98.7 F 70 20 147/66 H 96 04/03/20 12:25 04/03/20 12:04/03/20 12:04/03/20 12:04/03/20 12:25 Course - Vital Signs Vital signs: Temp Pulse Resp BP Pulse Ox 98.7 F 70 20 147/66 H 96 04/03/20 12:25 04/03/20 12:04/03/20 12:04/03/20 12:04/03/20 12:25 Doctor's Discharge - Discharge Referrals: MYNOR REDMOND PA [Primary Care Provider] - Follow up as needed
[2020-04-03 13:27] LABS: ABSOLUTE BASOPHILS # (AUTO) 0.1 10^3/uL (0.0-0.2); ABSOLUTE EOSINOPHILS # (AUTO) 0.1 10^3/uL (0.0-0.6); ABSOLUTE LYMPHOCYTES (AUTO) 1.5 10^3/uL (0.5-4.7); ABSOLUTE MONOCYTES (AUTO) 0.8 10^3/uL (0.1-1.4); ABSOLUTE NEUT (AUTO) 10.8 10^3/uL (1.7-8.2); BASOPHILS % (AUTO) 0.6 % (0-2); EOSINOPHILS % (AUTO) 0.7 % (0-6); HEMATOCRIT 47.2 % (37.9-51.0); HEMOGLOBIN 16.5 g/dL (13.5-17.0); LYMPHOCYTES % (AUTO) 11.6 % (13-45); MEAN CORPUSCULAR HEMOGLOBIN 33.8 pg (27.0-33.4); MEAN CORPUSCULAR HGB CONC 34.9 g/dL (32.0-36.0); MEAN CORPUSCULAR VOLUME 97 fl (80-97); MONOCYTES % (AUTO) 5.8 % (3-13); PLATELET COUNT 189 10^3/uL (150-450); RED BLOOD COUNT 4.88 10^6/uL (4.35-5.55); RED CELL DISTRIBUTION WIDTH 13.6 % (11.5-14.0); SEGMENTED NEUTROPHILS % (AUTO) 81.3 % (42-78); TOTAL CELLS COUNTED % (AUTO) 100 %; WHITE BLOOD COUNT 13.3 10^3/uL (4.0-10.5)
[2020-04-03 13:32] LABS: INTERNATIONAL RATION (INR) 0.88; PROTHROMBIN TIME 11.9 SEC (11.4-15.4)
[2020-04-03 13:44] LABS: ALBUMIN 5.1 g/dL (3.5-5.0); ALKALINE PHOSPHATASE 84 U/L (38-126); ANION GAP 9 (5-19); ASPARTATE AMINO TRANSFERASE 20 U/L (17-59); BILIRUBIN,DIRECT 0.2 mg/dL (0.0-0.4); BILIRUBIN,TOTAL 0.8 mg/dL (0.2-1.3); BLOOD UREA NITROGEN 14 mg/dL (7-20); CARBON DIOXIDE 28 mmol/L (22-30); CHLORIDE 102 mmol/L (98-107); GLUCOSE 253 mg/dL (75-110); POTASSIUM 4.4 mmol/L (3.6-5.0); TOTAL PROTEIN 8.7 g/dL (6.3-8.2)
--- NOTE | 2020-04-03 14:02 | RADIOLOGY REPORT (SQ) ---
EXAM DESCRIPTION: CT CERVICAL SPINE WITHOUT IMAGES COMPLETED DATE/TIME: 04/03/2020 12:47 pm REASON FOR STUDY: fall COMPARISON: None. TECHNIQUE: Axial images acquired through the cervical spine without intravenous contrast. Images re viewed with lung, soft tissue and bone windows. Reconstructed coronal and sagittal MPR images review ed. Images stored on PACS. All CT scanners at this facility use dose modulation, iterative reconstruction, and/or weight based d osing when appropriate to reduce radiation dose to as low as reasonably achievable (ALARA). [facility]: Dose Right [facility]: CareDose [facility]: Dose Right [facility]: Teradose 4D [facility]: [employer] RADIATION DOSE: CT Rad equipment meets quality standard of care and radiation dose reduction techniq ues were employed. CTDIvol: 17.8 mGy. DLP: 419 mGy-cm. mGy. LIMITATIONS: None. FINDINGS: ALIGNMENT: Anatomic. MINERALIZATION: Normal. VERTEBRAL BODIES: No acute fracture or cortical disruption. No lytic or blastic bone lesion. Small marginal osteophytes, with posterior projecting marginal osteophytes at C5 and C6. There is mild acq uired spinal canal stenosis secondary to disc osteophyte complex at C4-C5 with spinal canal measuring approximately 9 mm at this level. DISCS: Degenerative disc disease with loss of intervertebral disc heights. FACETS, LATERAL MASSES, POSTERIOR ELEMENTS: Facet arthropathy with uncovertebral spurring contributin g to neural foraminal stenosis at C5-C6 and C6-C7. No fractures. No dislocation. No acute findings . HARDWARE: None in the spine. VISUALIZED RIBS: No fractures. LUNG APICES AND SOFT TISSUES: Mild biapical emphysema. OTHER: No other significant finding. IMPRESSION: 1. No acute fracture or dislocation of the cervical spine. 2. Degenerative disc disease, spondylosis, and facet arthropathy. Mild acquired spinal canal stenosi s at C4-C5 secondary to degenerative discs and posterior projecting osteophyte. TECHNICAL DOCUMENTATION: JOB ID: [id number] Quality ID # [id number]: Final reports with documentation of one or more dose reduction techniques (e.g., Au tomated exposure control, adjustment of the mA and/or kV according to patient size, use of iterative reconstruction technique) 2010 [employer]- All Rights Reserved Reading location - IP/workstation name: [email or web address]
--- NOTE | 2020-04-03 14:07 | RADIOLOGY REPORT (SQ) ---
EXAM DESCRIPTION: CT HEAD WITHOUT IMAGES COMPLETED DATE/TIME: 04/03/2020 1:47 pm REASON FOR STUDY: fall; on coumadin COMPARISON: 01/02/2017 TECHNIQUE: Axial images acquired through the brain without intravenous contrast. Images reviewed wi th bone, brain and subdural windows. Additional sagittal and coronal reconstructions were generated. Images stored on PACS. All CT scanners at this facility use dose modulation, iterative reconstruction, and/or weight based d osing when appropriate to reduce radiation dose to as low as reasonably achievable (ALARA). [facility]: Dose Right [facility]: CareDose [facility]: Dose Right [facility]: Teradose 4D [facility]: [employer] RADIATION DOSE: CT Rad equipment meets quality standard of care and radiation dose reduction techniq ues were employed. CTDIvol: 53.2 mGy. DLP: 964 mGy-cm. mGy. LIMITATIONS: None. FINDINGS: VENTRICLES: Normal size and contour. CEREBRUM: No masses. No hemorrhage. No midline shift. No evidence for acute infarction. Normal gra y/white matter differentiation. No areas of low density in the white matter. CEREBELLUM: No masses. No hemorrhage. No alteration of density. No evidence for acute infarction. EXTRAAXIAL SPACES: No fluid collections. No masses. ORBITS AND GLOBE: No intra- or extraconal masses. Normal contour of globe without masses. CALVARIUM: No fracture. PARANASAL SINUSES: No fluid or mucosal thickening. SOFT TISSUES: No mass or hematoma. OTHER: No other significant finding. IMPRESSION: NORMAL BRAIN CT WITHOUT CONTRAST. EVIDENCE OF ACUTE STROKE: NO. COMMENT: Quality ID # 436: Final reports with documentation of one or more dose reduction techniques (e.g., Automated exposure control, adjustment of the mA and/or kV according to patient size, use of iterative reconstruction technique) TECHNICAL DOCUMENTATION: JOB ID: [id number] 2010 [employer]- All Rights Reserved Reading location - IP/workstation name: [email or web address]
--- NOTE | 2020-04-03 16:15 | RADIOLOGY REPORT (SQ) ---
EXAM DESCRIPTION: MRI HEAD WITHOUT IMAGES COMPLETED DATE/TIME: 04/03/2020 4:03 pm REASON FOR STUDY: LLE weakness; fall COMPARISON: None. TECHNIQUE: Multiplanar imaging includes non-contrasted T1, T2, FLAIR, and diffusion with ADC map seq uences. Images stored on PACS. LIMITATIONS: None. FINDINGS: ANATOMY: No anomalies. Normal vascular flow voids. Pituitary fossa normal. CSF SPACES: Normal in size and contour. No hemorrhage. CEREBRUM: Sulci and gyri normal in size and contour. There are a few small scattered areas of increa sed white matter signal on FLAIR imaging. No evidence of hemorrhage, mass, or extraaxial fluid colle ction. POSTERIOR FOSSA: No signal alteration. No hemorrhage. No edema, masses or mass effect. Internal bill tory canals, cerebello-pontine angles, mastoids normal. DIFFUSION IMAGING: Negative for acute or sub-acute infarction. ORBITS: No masses. Globes normal. PARANASAL SINUSES: No fluid levels. Mucosa normal. OTHER: No other significant finding. IMPRESSION: Very mild chronic microvascular ischemia with no acute intracranial imaging findings. EVIDENCE OF ACUTE STROKE: NO. TECHNICAL DOCUMENTATION: JOB ID: [id number] 2010 [employer]- All Rights Reserved Reading location - IP/workstation name: [email or web address]
--- NOTE | 2020-04-03 16:18 | RADIOLOGY REPORT (SQ) ---
EXAM DESCRIPTION: MRA HEAD WITHOUT IMAGES COMPLETED DATE/TIME: 04/03/2020 4:03 pm REASON FOR STUDY: fall; hx tia's; LLE weakness COMPARISON: None. TECHNIQUE: Axial 3-D mvlb-qj-igtcre acquisition imaging performed through the brain in the area of t he [place] of [place]. Images reformatted using 3-D MIPS. LIMITATIONS: None. FINDINGS: SOURCE IMAGES: No unexpected findings on source images. No large masses. 3-D MIP: No aneurysm. No occlusions. No significant stenosis. OTHER: No other significant finding. IMPRESSION: NORMAL MRA OF THE [place]. TECHNICAL DOCUMENTATION: JOB ID: [id number] 2010 [employer]- All Rights Reserved Reading location - IP/workstation name: [email or web address]
--- NOTE | 2020-04-03 19:23 | EKG REPORT ---
SEVERITY:- OTHERWISE NORMAL ECG - SINUS RHYTHM LOW VOLTAGE IN FRONTAL LEADS : Confirmed by: Aura Perez 03-Apr-2020 19:22:35
--- NOTE | 2020-04-03 19:38 | ER Document Report ---
ED General - General Chief Complaint: Fall Stated Complaint: FALL/HEAD INJURY Time Seen by Provider: 04/03/20 12:40 Primary Care Provider: MYNOR REDMOND PA [Primary Care Provider] - Follow up as needed TRAVEL OUTSIDE OF THE [place] IN LAST 30 DAYS: No - HPI Notes: Patient is a 74-year-old male with a history of hypertension, multiple TIAs, who presents to the emergency department for evaluation. 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 He started to feel poorly. He left [place], went to go get some chicken. He states he was feeling improved. He went from there to the [place] to get his blood work and urinalysis performed. While getting his urinalysis, he fell. He states he believes he had a small TIA. He states he has been getting them frequently for some time. He has been doing evaluated for them. The patient's , who spoke on the phone, states that he has been having balance and frequent fall issues for some time as well. Patient states he does not have any pain. He is feeling significantly improved. He would like to be discharged. States his tetanus is up-to-date. - Related Data Allergies/Adverse Reactions: No Known Allergies Allergy (Verified 12/04/17 12:12) Past Medical History - General Information source: Patient - Social History Smoking Status: Never Smoker Family History: None - Past Medical History Cardiac Medical History: Reports: Hx Hypercholesterolemia, Hx Hypertension Neurological Medical History: Reports: Other - TIAs Endocrine Medical History: Reports: Hx Diabetes Mellitus Type 2 Renal/ Medical History: Denies: Hx Peritoneal Dialysis Past Surgical History: Reports: Hx Orthopedic Surgery - lumbar spine Sx Review of Systems - Review of Systems Constitutional: See HPI Skin: See HPI Neurological/Psychological: See HPI -: Yes All other systems reviewed and negative Physical Exam - Vital signs Vitals: Temp Pulse Resp BP Pulse Ox 98.7 F 70 20 147/66 H 96 04/03/20 12:25 04/03/20 12:25 04/03/20 12:25 04/03/20 12:25 04/03/20 12:25 - Notes Notes: Vital signs reviewed, please refer to chart. Head is normocephalic, atraumatic. Pupils equal round, reactive to light. Neck is supple without meningismus. Heart is regular rate and rhythm. Lungs are clear to auscultation bilaterally. Abdomen is soft, nontender, normoactive bowel sounds throughout. Extremities without cyanosis, clubbing. Posterior calves are nontender. Peripheral pulses are equal. Skin is warm and dry. He has an abrasion noted to the top of his head, his right forearm, right hendricks. Patient is awake, alert, oriented x3. Cranial nerves II - XII are grossly intact without focal neurological deficits. Strength is plus 5 out of 5 bilateral upper and lower extremities. Sensation is intact. Reflexes symmetrical. Intact mylytu-lppw-bqocaf, rapid alternating movements, ihmj-tp-pyxo. Course - Re-evaluation Re-evalutation: 04/03/20 19:53 Patient presents to the emergency department for evaluation. He states he thought he had a mini stroke. He is back to neurological baseline at this time. He had a significant work-up here which was unremarkable. The patient denies any pain or issues, states he would like to go home. He states he takes his medications as prescribed. Nursing was able to talk to his , who states this is been an ongoing and longstanding problem, is being worked up as an outpatient. 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 [facility]. Otherwise, patient's tetanus is up-to-date, his wounds were cleansed. His work appears unremarkable. [facility], return to the ED with worsening. - Vital Signs Vital signs: Temp Pulse Resp BP Pulse Ox 97.9 F 76 18 162/69 H 98 04/03/20 18:47 04/03/20 18:47 04/03/20 18:47 04/03/20 18:47 04/03/20 18:47 - Laboratory Result Diagrams: 04/03/20 13:15 04/03/20 13:15 Laboratory results interpreted by me: 04/03/20 04/03/20 13:15 13:15 WBC 13.3 H [facility] 33.8 H Lymph % (Auto) 11.6 L Absolute Neuts (auto) 10.8 H Seg Neutrophils % 81.3 H Glucose 253 H Total Protein 8.7 H Albumin 5.1 H - Diagnostic Test Radiology reviewed: Reports reviewed Radiology results interpreted by me: 04/03/20 19:[address] 04/03/20 12:40 IMPRESSION: NORMAL BRAIN CT WITHOUT CONTRAST. EVIDENCE OF ACUTE STROKE: NO. Cervical Spine CT 04/03/20 12:42 IMPRESSION: 1. No acute fracture or dislocation of the cervical spine. 2. Degenerative disc disease, spondylosis, and facet arthropathy. Mild acquired spinal canal stenosis at C4-C5 secondary to degenerative discs and posterior projecting osteophyte. Brain MRI with MRA 04/03/20 14:47 IMPRESSION: NORMAL MRA OF THE [place]. Head MRI 04/03/20 14:47 IMPRESSION: Very mild chronic microvascular ischemia with no acute intracranial imaging findings. EVIDENCE OF ACUTE STROKE: NO. - EKG Interpretation by Me Additional EKG results interpreted by me: 04/03/20 19:54 Sinus mechanism with a rate of 77 bpm. Normal axis and intervals. No acute ST changes concerning for ischemia or infarction. Discharge - Discharge Clinical Impression: TIA (transient ischemic attack), Right hendricks abrasion Fall Qualifiers: Encounter type: initial encounter Qualified Code(s): W19.XXXA - Unspecified fall, initial encounter Scalp abrasion Qualifiers: Encounter type: initial encounter Qualified Code(s): S00.01XA - Abrasion of scalp, initial encounter Condition: Stable Disposition: HOME, SELF-CARE Instructions: Transient Ischemic Attack ([facility]), Abrasions ([facility]) Additional Instructions: It appears you may have had a mini stroke today. Please continue your medications at home as prescribed. 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 [facility] Return to the emergency department with worsening or new concerning symptoms of any sort. Referrals: MYNOR REDMOND PA [Primary Care Provider] - Follow up as needed
[2020-04-03 20:08] VITALS: BP 160/71
--- NOTE | 2020-04-04 20:52 | EKG REPORT ---
SEVERITY:- OTHERWISE NORMAL ECG - SINUS RHYTHM LOW VOLTAGE IN FRONTAL LEADS : Confirmed by: Aura Perez 04-Apr-2020 20:52:28
== END 2020-04-03 20:08 | disposition home or self-care (01) ==
LOC: ER 12:18
DX: G45.9 Transient cerebral ischemic attack, unspecified (principal); S09.90XA Unspecified injury of head, initial encounter; S80.811A Abrasion, right lower leg, initial encounter; S00.01XA Abrasion of scalp, initial encounter; R53.1 Weakness; W19.XXXA Unspecified fall, initial encounter; Y92.531 Health care provider office as the place of occurrence of the external cause; E78.00 Pure hypercholesterolemia, unspecified; I10 Essential (primary) hypertension; E11.9 Type 2 diabetes mellitus without complications; Z79.02 Long term (current) use of antithrombotics/antiplatelets; Z86.73 Personal history of transient ischemic attack (TIA), and cerebral infarction without residual deficits; Z91.81 History of falling
CPT/HCPCS: 36415; 70450; 70544; 70551; 72125; 80053; 84484; 85025; 85610; 85730; 93005; 93010; 99284